=== PATIENT | male | born 2000 | race Two or more races ===

== ENCOUNTER 2023-10-08 22:17 | Emergency (ER) | payer OTHER ==
[~2023-10-08] VITALS: Ht 167.6 cm; Wt 85.3 kg
== END 2023-10-09 00:54 | disposition left against medical advice (07) ==
LOC: ER 22:17
DX: S41.119A Laceration without foreign body of unspecified upper arm, initial encounter (principal); S81.819A Laceration without foreign body, unspecified lower leg, initial encounter; S01.81XA Laceration without foreign body of other part of head, initial encounter; T07.XXXA Unspecified multiple injuries, initial encounter; X58.XXXA Exposure to other specified factors, initial encounter; Y93.89 Activity, other specified; Y92.89 Other specified places as the place of occurrence of the external cause; Y99.8 Other external cause status